=== PATIENT | female | born 1970 | race Caucasian/White ===

== ENCOUNTER → 2019-11-29 14:46 | Outpatient (CLI) | payer BC, SELFPAY ==
--- NOTE | 2019-11-29 14:46 | US_ITS ---
PROCEDURE: US THYROID CLINICAL INDICATION: enlarged thyroid COMPARISON: No exams were available for comparison FINDINGS: Right lobe: 4.2 x 1.6 x 1.5 cm. Homogeneous echogenicity. No discrete nodule Left lobe: 4.0 x 1.3 x 1.6 cm. Homogeneous echogenicity. No discrete nodule Isthmus: Unremarkable Additional findings: IMPRESSION: Unremarkable thyroid ultrasound Dictated by: Randy Wiseman MD 11/29/2019 16:44 Electronically signed by Randy Wiseman MD in [place] 11/29/2019 16:44
[2019-11-29 18:26] LABS: Free T4 (Free Thyroxine) 1.46 ng/dl (0.78-2.19)
[2019-11-29 18:41] LABS: Thyroid Stimulating Hormone 1.05 uIU/mL (0.465-4.68)
[2019-12-01 13:42] LABS: Thyroid Peroxidase Antibodies <9 IU/mL (0-34)
[2019-12-03 14:59] LABS: Thyroid Stimulating Immunoglob <0.10 IU/L (0.00-0.55)
== END ==
PROVIDERS: PCP Nurse Practitioner Obstetrics & Gynecology; Visit Provider Otolaryngology
DX: E01.0 Iodine-deficiency related diffuse (endemic) goiter (principal); E03.9 Hypothyroidism, unspecified
CPT/HCPCS: 36415; 76536; 84439; 84443; 84445; 86376

== ENCOUNTER → 2020-09-14 15:58 | Outpatient (CLI) | payer MEDICAID, SELFPAY ==
--- NOTE | 2020-09-14 16:01 | XR_ITS ---
PROCEDURE: XR HAND LT MIN 3V CLINICAL INDICATION: left hand/ thumb pain COMPARISON: CR [id number] XR hand RT min 3V from 04/12/2018 FINDINGS: No fracture or dislocation. No lytic or blastic change. There is normal mineralization. The joint spaces are well-preserved. No significant degenerative/arthritic changes. No erosive changes evident. Other findings:None. IMPRESSION: Negative left hand Dictated by: Randy Wiseman MD 09/15/2020 05:30 Randy Wiseman MD in [place] 09/15/2020 05:30
--- NOTE | 2020-09-14 16:01 | XR_ITS ---
PROCEDURE: XR HAND RT MIN 3V CLINICAL INDICATION: right hand pain/ thumb pain Pain with limited range of motion COMPARISON: CR [id number] XR hand RT min 3V from 04/12/2018 FINDINGS: No fracture or dislocation. No lytic or blastic change. There is normal mineralization. There is an old healed fracture of the metacarpal. Joint spaces are well preserved. Other findings:None. IMPRESSION: Old 5th metacarpal fracture, no acute finding Dictated by: Randy Wiseman MD 09/15/2020 05:29 Randy Wiseman MD in [place] 09/15/2020 05:29
== END ==
PROVIDERS: Visit Provider Orthopaedic Surgery
DX: M79.642 Pain in left hand (principal); M79.641 Pain in right hand
CPT/HCPCS: 73130

== ENCOUNTER 2024-10-24 14:38 | Outpatient (CLI) | payer SELFPAY ==
[2024-10-24 17:57] LABS: Basophils # 0.1 K/mm3 (0-0.2); Basophils % 0.7 % (0.1-2.0); Eosinophils # 0.2 K/mm3 (0.0-0.4); Eosinophils % 2.9 % (0.1-12.0); Hematocrit 47.4 % (37.0-47.0); Hemoglobin 16.2 g/dL (12.2-16.2); Lymphocytes # 2.4 K/mm3 (0.7-4.5); Mean Corpuscular HGB Conc 34.2 g/dL (31.8-35.4); Mean Corpuscular Hemoglobin 29.9 pg (27.0-31.2); Mean Corpuscular Volume 87.5 fl (81-99); Mean Platelet Volume 12.4 fl (7.4-10.4); Monocytes # 0.8 K/mm3 (0.1-1.0); Monocytes % 10.1 % (1.7-9.3); Neutrophils # 4.7 K/mm3 (1.8-7.8); Neutrophils % 57.1 % (37.0-80.0); Platelet Count 226 K/mm3 (142-424); Red Blood Count 5.42 M/mm3 (4.20-5.40); Red Cell Distribution Width 13.5 % (11.5-17.5); White Blood Count 8.2 K/mm3 (4.8-10.8)
[2024-10-24 19:03] LABS: Alanine Aminotransferase 21 U/L (12-78); Albumin Level 4.7 g/dl (3.5-5.0); Alkaline Phosphatase 174 U/L (38-126); Anion Gap 14.1 mEq/L (5-15); Aspartate Amino Transferase 26 U/L (14-36); Bilirubin,Total 0.3 mg/dl (0.2-1.3); Blood Urea Nitrogen 15 mg/dl (7-17); Calcium 10.1 mg/dl (8.4-10.2); Carbon Dioxide 26 mmol/L (22.0-30.0); Chloride 105 mmol/L (98-107); Cholesterol 218 mg/dl (140-200); Estimated Glomerular Filt Rate 75 ml/min (>60); GFR (African American) 91 ML/MIN (>60); Globulin 2.4 g/dL (1.3-3.2); Glucose 77 mg/dl (74-100); HDL Cholesterol 44 mg/dl (40-60); Potassium 5.1 mmoL/L (3.5-5.1); Sodium 140 mmol/L (136-145); Total Protein,Serum 7.1 g/dl (6.3-8.2); Triglycerides 253 mg/dl (30-150); VLDL Cholesterol 51 mg/dL (0-40)
[2024-10-24 19:37] LABS: Thyroid Stimulating Hormone 1.03 uIU/mL (0.465-4.68)
== END 2024-10-24 23:59 | disposition home or self-care (01) ==
LOC: LAB.DROPOF 10-25 15:01
PROVIDERS: PCP Family Medicine; Visit Provider Family Medicine
DX: E03.9 Hypothyroidism, unspecified (principal); I10 Essential (primary) hypertension; Z72.0 Tobacco use
CPT/HCPCS: 80053; 80061; 84443; 85025